=== PATIENT | male | born 1995 | race African-American/Black ===

== ENCOUNTER 2020-08-13 09:08 | Emergency (ER) | payer OTHER ==
[~2020-08-13] VITALS: Ht 162.6 cm; Wt 81.6 kg
== END 2020-08-13 12:24 | disposition home or self-care (01) ==
LOC: ER 09:08
DX: J03.90 Acute tonsillitis, unspecified (principal); Z03.818 Encounter for observation for suspected exposure to other biological agents ruled out

== ENCOUNTER 2020-12-27 02:46 | Emergency (ER) | payer OTHER ==
[~2020-12-27] VITALS: Ht 162.6 cm; Wt 83.5 kg
== END 2020-12-27 06:42 | disposition home or self-care (01) ==
LOC: ER 02:46
DX: J45.998 Other asthma (principal); Z03.818 Encounter for observation for suspected exposure to other biological agents ruled out

== ENCOUNTER 2021-07-14 05:36 | Emergency (ER) | payer OTHER ==
[~2021-07-14] VITALS: Ht 165.1 cm; Wt 81.6 kg
[2021-07-14] MEDS ORDERED: ALLEGRA-D 12 H1 EACH PO (07:25)
== END 2021-07-14 07:38 | disposition home or self-care (01) ==
LOC: ER 05:36
DX: R07.89 Other chest pain (principal); R09.81 Nasal congestion